=== PATIENT | female | born 1960 | race Caucasian/White ===

== ENCOUNTER 2016-12-07 15:16 | Emergency (ER) | payer MEDICAID | END 2016-12-07 20:42 | disposition home or self-care (01) | LOC: D.ER 15:16 | DX: F41.9 Anxiety disorder, unspecified (principal); F32.9 Major depressive disorder, single episode, unspecified ==

== ENCOUNTER → 2017-10-15 11:23 | Outpatient (CLI) | payer MEDICAID | END | disposition home or self-care (01) | LOC: D.US 11:23 | DX: R14.1 Gas pain (principal) ==

== ENCOUNTER 2017-12-12 23:09 | Emergency (ER) | payer MEDICAID ==
[~2017-12-12] VITALS: Ht 154.9 cm; Wt 71.8 kg
[2017-12-12 23:17] VITALS: Ht 154.9 cm; Wt 71.8 kg
[2017-12-12] MEDS ORDERED: GLUCOPHAGE500 MG PO (23:19)
[2017-12-12] MEDS ORDERED: BUSPAR10 MG PO (23:20)
[2017-12-12] MEDS ORDERED: UNITHROID75 MCG (23:20)
[2017-12-12] MEDS ORDERED: SEROQUEL400 MG PO (23:20)
[2017-12-12] MEDS ORDERED: FENOGLIDE120 MG (23:21)
[2017-12-12] MEDS ORDERED: OMEPRAZOLE40 MG PO (23:21)
[2017-12-13] LABS: BASOPHILS 1.4 % (0-2); EOSINOPHILS 14.1 % (0-7); HEMATOCRIT 31.4 % (36.0-48.0); HEMOGLOBIN 10.2 g/dL (12-16); IMMATURE GRANULOCYTES 0.8 % (0-5); LYMPHOCYTES 34.6 % (15-50); MCH 26.3 pg (26.0-34.0); MCHC 32.5 g/dL (31.0-37.0); MCV 80.9 fL (80.0-100.0); MEAN PLATELET VOLUME 11.1 fL (7.4-10.4); MONOCYTES 5.9 % (2-11); NEUTROPHILS 43.2 % (40-80); PLATELET COUNT 173 10x3/uL (130-400); RBC 3.88 10x6/uL (4.00-5.40); RDW 14.5 % (11.5-14.5); WBC 4.9 10x3/uL (4.8-10.8)
[2017-12-13 00:14] LABS: ALBUMIN 3.4 g/dL (3.4-5.0); ALKALINE PHOSPHATASE 61 U/L (46-116); ALT (SGPT) 29 U/L (10-68); BILIRUBIN - TOTAL 0.27 mg/dL (0.2-1.3); CALC OSMOLALITY 285 mosm/kg (275-300); CALCIUM 9.3 mg/dL (8.5-10.1); CARBON DIOXIDE 27.3 mmol/L (21.0-32.0); CHLORIDE - SERUM 103 mmol/L (98-107); GLUCOSE 232 mg/dL (74-106); POTASSIUM - SERUM 3.3 mmol/L (3.5-5.1); PROTEIN - SERUM 6.8 g/dL (6.4-8.2); SODIUM 139 mmol/L (136-145); UREA NITROGEN 14 mg/dL (7-18); eGFR NON AFRICAN AMERICAN 61 mL/min (90-120)
[2017-12-13 00:16] LABS: APPEARANCE CLEAR (CLEAR); BILIRUBIN NEGATIVE (NEGATIVE); COLOR YELLOW (YELLOW); GLUCOSE NEGATIVE (NEGATIVE); KETONE NEGATIVE (NEGATIVE); NITRITE NEGATIVE (NEGATIVE); PROTEIN NEGATIVE (NEGATIVE); SPECIFIC GRAVITY 1.005 (1.005-1.020); UROBILINOGEN NORMAL (NORMAL)
[2017-12-13 00:25] LABS: TROPONIN-I < 0.017 ng/mL (0.000-0.060)
[2017-12-13 02:42] VITALS: BP 112/71
== END 2017-12-13 02:45 | disposition home or self-care (01) ==
LOC: D.ER 23:09
PROVIDERS: Family Medicine
DX: R42 Dizziness and giddiness (principal); E11.9 Type 2 diabetes mellitus without complications; E86.0 Dehydration